=== PATIENT | female | born 1985 | race Caucasian/White ===

== ENCOUNTER 2020-08-18 10:59 | Emergency (ER) | payer BC ==
[~2020-08-18 10:59] MED LIST: CARAFATE1 GM PO; PROTONIX40 MG PO; ZOFRAN 4 MG TAB4 MG PO
[2020-08-18] MEDS ORDERED: NAPROXEN500 MG PO (12:10)
[2020-08-18] MEDS ORDERED: NORFLEX 100 MG100 MG PO (12:10)
[2020-08-18] MEDS ORDERED: PREDNISONE 50 M50 MG PO (12:10)
== END 2020-08-18 12:25 | disposition home or self-care (01) ==
LOC: ER1 10:59
DX: M54.41 Lumbago with sciatica, right side (principal); F17.210 Nicotine dependence, cigarettes, uncomplicated; E03.9 Hypothyroidism, unspecified; Z90.49 Acquired absence of other specified parts of digestive tract; Z90.710 Acquired absence of both cervix and uterus; Z79.899 Other long term (current) drug therapy; Z88.8 Allergy status to other drugs, medicaments and biological substances
CPT/HCPCS: 72100; 96372; 99283; J1885; J2930

== ENCOUNTER → 2021-10-10 | Outpatient (CLI) | payer BC, OTHER ==
[~2021-10-10] MED LIST changes: +NAPROXEN500 MG PO; +NORFLEX 100 MG100 MG PO; +PREDNISONE 50 M50 MG PO
== END ==
LOC: RAD 15:32
DX: M54.2 Cervicalgia (principal); M54.41 Lumbago with sciatica, right side; G89.29 Other chronic pain
CPT/HCPCS: 72050; 72110